=== PATIENT | female | born 1975 | race Caucasian/White ===

== ENCOUNTER 2017-09-26 06:07 | Inpatient (IN) | payer OTHER ==
[2017-09-26] MEDS: CEFAZOLIN 2 GM/50 ML (PMX) 50 ML IVPB ×3 (06:00→22:05)
[2017-09-26] MEDS ORDERED: FENTAnyl 50 MCG/ML VIAL (07:00)
[2017-09-26] MEDS ORDERED: CEFAZOLIN 1 GM INJ (07:34)
[2017-09-26] MEDS ORDERED: PROPOFOL 20 ML (07:34)
[2017-09-26] MEDS ORDERED: ROCURONIUM 50 MG INJ ×2 (07:34→07:37)
[2017-09-26] MEDS ORDERED: ROPIVACAINE 0.5 % 30 ML VIAL (07:35)
[2017-09-26] MEDS ORDERED: MIDAZOLAM 1 MG/ML 2 ML INJ (07:35)
[2017-09-26] MEDS ORDERED: morphine SULFATE/PF (10 MG/10 ML) INJ (07:35)
[2017-09-26] MEDS ORDERED: METOCLOPRAMIDE 10 MG INJ (08:00)
[2017-09-26] MEDS ORDERED: ONDANSETRON 4 MG INJ (08:00)
[2017-09-26] MEDS ORDERED: DEXAMETHASONE 4 MG/ML 1 ML INJ (08:00)
[2017-09-26] MEDS ORDERED: KETOROLAC 30 MG INJ (08:00)
[2017-09-26] MEDS ORDERED: SODIUM CL BACTERIOSTATIC 30 ML INJ (08:30)
[2017-09-26] MEDS: VASOPRESSIN 20 UNITS INJ (08:39)
[2017-09-26] MEDS ORDERED: PHENYLephrine (100 MCG/ML) 5ML SYG (09:29)
[2017-09-26] MEDS ORDERED: ACETAMINOPHEN 1000MG/100ML IV 100 ML (09:53)
[2017-09-26] MEDS ORDERED: SUGAMMADEX SODIUM 200 MG/2 ML VIAL IV (09:53)
[2017-09-26] MEDS ORDERED: hydrALAzine 20 MG INJ IV (10:30)
[2017-09-26] MEDS ORDERED: KETOROLAC 30 MG INJ IV (10:30)
[2017-09-26] MEDS ORDERED: LABETALOL HCL 20MG INJ IV (10:30)
[2017-09-26] MEDS ORDERED: FENTAnyl 50 MCG/ML VIAL IV ×2 (10:30)
[2017-09-26] MEDS ORDERED: HYDROCODONE/APAP (5/325) TAB PO (10:30)
[2017-09-26] MEDS ORDERED: MEPERIDINE 25 MG INJ IV (10:30)
[2017-09-26] MEDS ORDERED: morphine (1 MG/ML) 10ML SYRINGE IV ×2 (10:30)
[2017-09-26] MEDS ORDERED: HYDROmorphONE (0.2 MG/ML) 10ML SYG IV ×2 (10:30)
[2017-09-26] MEDS ORDERED: ACETAMINOPHEN 500 MG TAB PO (10:30)
[2017-09-26] MEDS ORDERED: METOCLOPRAMIDE 10 MG INJ IV (10:30)
[2017-09-26] MEDS ORDERED: NALBUPHINE HCL (10 MG/1 ML) INJ IV (10:30)
[2017-09-26] MEDS ORDERED: OXYCODONE/ACETAMINOPHEN (5/325) TAB PO ×2 (10:30)
[2017-09-26] MEDS ORDERED: NALOXONE (0.4 MG/ML) INJ IV (10:30)
[2017-09-26] MEDS ORDERED: DIPHENHYDRAMINE 50 MG INJ IV ×2 (10:30)
[2017-09-26] MEDS ORDERED: morphine 2 MG INJ IV ×2 (10:30)
[2017-09-26] MEDS ORDERED: EPHEDrine SULFATE 50 MG/5 ML SYG IV (10:30)
[2017-09-26] MEDS ORDERED: HYDROmorphONE 0.5 MG/0.5 ML SYG IV (10:30)
[2017-09-26] MEDS: IBUPROFEN 600 MG TAB PO ×2 (13:00→22:04)
[2017-09-26] MEDS: LACTATED RINGER'S 1,000 ML IV* (14:13)
[2017-09-26] MEDS: ONDANSETRON 4 MG INJ IV ×2 (15:24→22:05)
[2017-09-26] MEDS: HYDROmorphONE 0.5 MG/0.5 ML SYG IV (20:03)
[2017-09-27] MEDS: HYDROmorphONE 0.5 MG/0.5 ML SYG IV (01:44)
[2017-09-27] MEDS: CEFAZOLIN 2 GM/50 ML (PMX) 50 ML IVPB (05:18)
[2017-09-27] MEDS: IBUPROFEN 600 MG TAB PO ×3 (05:19→20:26)
[2017-09-27 05:34] LABS: ADD MAN DIFF? NO
[2017-09-27 05:37] LABS: BASOPHILS % 0.3 % (0.0-2.0); EOSINOPHILS % 0.3 % (0.0-7.0); HEMATOCRIT 25.5 % (37.0-47.0); HEMOGLOBIN 7.8 g/dl (12.0-16.0); LYMPHOCYTES # 1.5 10^3/ul (0.8-2.9); LYMPHOCYTES % 19.5 % (15.0-51.0); MEAN CORPUSCULAR HEMOGLOBIN 24.1 pg (29.0-33.0); MEAN CORPUSCULAR HGB CONC 30.6 g/dl (32.0-37.0); MEAN CORPUSCULAR VOLUME 78.9 fl (82.0-101.0); MEAN PLATELET VOLUME 10.4 fl (7.4-10.4); MONOCYTE # 1.2 10^3/ul (0.3-0.9); MONOCYTES % 15.8 % (0.0-11.0); NEUTROPHIL # 4.9 10^3/ul (1.6-7.5); NEUTROPHILS % 63.8 % (39.0-77.0); PLATELET COUNT 300 10^3/UL (140-415); RED BLOOD COUNT 3.23 10^6/ul (4.20-5.40); RED CELL DISTRIBUTION WIDTH 16.2 % (11.5-14.5)
[2017-09-27 05:37] LABS: WHITE BLOOD COUNT 7.7 10^3/ul (4.8-10.8)
[2017-09-27 05:48] LABS: ANION GAP 14 (8-16); BLOOD UREA NITROGEN 13 mg/dl (7-20); CALCIUM 8.1 mg/dl (8.4-10.2); CARBON DIOXIDE 24 mmol/L (21-31); CHLORIDE 105 mmol/L (97-110); CREATININE 0.75 mg/dl (0.44-1.00); GLUCOSE 106 mg/dl (70-220); POTASSIUM 3.7 mmol/L (3.5-5.1); SODIUM 139 mmol/L (135-144)
[2017-09-27 06:36] LABS: ADD UMIC YES; UR ASCORBIC ACID NEGATIVE (NEGATIVE); UR BACTERIA FEW /HPF (NONE SEEN); UR BILIRUBIN (Dip) NEGATIVE (NEGATIVE); UR BLOOD (Dip) 1+ mg/dL (NEGATIVE); UR CLARITY CLEAR (CLEAR); UR COLOR STRAW (YELLOW); UR GLUCOSE (Dip) NEGATIVE (NEGATIVE); UR KETONES (Dip) NEGATIVE (NEGATIVE); UR LEUKOCYTE ESTERASE (Dip) NEGATIVE Leu/ul (NEGATIVE); UR NITRITE (Dip) NEGATIVE (NEGATIVE); UR RBC 3 /HPF (0-5); UR SPECIFIC GRAVITY (Dip) 1.004 (1.003-1.030); UR TOTAL PROTEIN (Dip) NEGATIVE (NEGATIVE); UR UROBILINOGEN (Dip) NEGATIVE (NEGATIVE); UR WBC 0 /HPF (0-5)
[2017-09-27] MEDS: HYDROCODONE/APAP (5/325) TAB PO ×2 (10:27→17:31)
[2017-09-28] MEDS: HYDROCODONE/APAP (5/325) TAB PO ×3 (02:21→19:50)
[2017-09-28] MEDS: IBUPROFEN 600 MG TAB PO ×3 (05:09→21:34)
[2017-09-28 10:45] LABS: ADD MAN DIFF? NO
[2017-09-28 10:46] LABS: BASOPHILS % 0.4 % (0.0-2.0); EOSINOPHILS # 0.1 10^3/ul (0.0-0.5); EOSINOPHILS % 1.6 % (0.0-7.0); HEMATOCRIT 27.3 % (37.0-47.0); HEMOGLOBIN 8.3 g/dl (12.0-16.0); LYMPHOCYTES # 1.8 10^3/ul (0.8-2.9); LYMPHOCYTES % 22.4 % (15.0-51.0); MEAN CORPUSCULAR HEMOGLOBIN 24.1 pg (29.0-33.0); MEAN CORPUSCULAR HGB CONC 30.4 g/dl (32.0-37.0); MEAN CORPUSCULAR VOLUME 79.1 fl (82.0-101.0); MEAN PLATELET VOLUME 9.9 fl (7.4-10.4); MONOCYTE # 0.7 10^3/ul (0.3-0.9); MONOCYTES % 8.7 % (0.0-11.0); NEUTROPHIL # 5.3 10^3/ul (1.6-7.5); NEUTROPHILS % 66.5 % (39.0-77.0); PLATELET COUNT 309 10^3/UL (140-415); RED BLOOD COUNT 3.45 10^6/ul (4.20-5.40); RED CELL DISTRIBUTION WIDTH 16.4 % (11.5-14.5)
[2017-09-28] MEDS ORDERED: NON-FORMULARY/PATIENT OWN MED (Omeprazole* 40 MG) PO (12:00)
[2017-09-28] MEDS: PANTOPRAZOLE (EC) 40 MG TAB PO (13:04)
[2017-09-28] MEDS: PROPRANOLOL 10 MG TAB PO (13:07)
[2017-09-29] MEDS: IBUPROFEN 600 MG TAB PO ×2 (05:24→12:40)
[2017-09-29] MEDS: PANTOPRAZOLE (EC) 40 MG TAB PO (05:24)
[2017-09-29] MEDS: PROPRANOLOL 10 MG TAB PO (08:22)
[2017-09-29] MEDS ORDERED: BISACODYL 10 MG SUPP PR (10:00)
[2017-09-29] MEDS: HYDROCODONE/APAP (5/325) TAB PO (11:07)
== END 2017-09-29 16:30 | disposition home or self-care (01) | DRG 743 ==
LOC: REC 06:07 → MS1 11:25
PROC: 0UB90ZZ Excision of Uterus, Open Approach (ICD-10-PCS; principal; 2017-09-26 07:30)
PROC: 3E0R3GC Introduction of Other Therapeutic Substance into Spinal Canal, Percutaneous Approach (ICD-10-PCS; 2017-09-26 07:39)
DX: D25.1 Intramural leiomyoma of uterus (principal); I10 Essential (primary) hypertension; N73.6 Female pelvic peritoneal adhesions (postinfective); E78.5 Hyperlipidemia, unspecified; G97.1 Other reaction to spinal and lumbar puncture
CPT/HCPCS: 80048; 81001; 84703; 85025; 86850; 86900; 86901; 86920; 87086; 88305

== ENCOUNTER 2018-01-21 15:26 | Emergency (ER) | payer OTHER ==
[2018-01-21] MEDS: ONDANSETRON (ODT) 4 MG TAB ODT (16:13)
== END 2018-01-21 17:45 | disposition home or self-care (01) ==
LOC: FTE 15:26
DX: H93.13 Tinnitus, bilateral (principal); R11.2 Nausea with vomiting, unspecified; R42 Dizziness and giddiness
CPT/HCPCS: 70450; 99284-25

== ENCOUNTER 2018-05-01 15:31 | Emergency (ER) | payer OTHER ==
[2018-05-01] MEDS: DEXAMETHASONE 10 MG/ML 1 ML INJ IM (16:44)
== END 2018-05-01 18:17 | disposition home or self-care (01) ==
LOC: FTE 18:17
DX: L29.9 Pruritus, unspecified (principal)
CPT/HCPCS: 96372; 99284-25

== ENCOUNTER 2018-05-04 12:48 | Emergency (ER) | payer OTHER ==
[2018-05-04] MEDS: LORAZEPAM 0.5 MG TAB PO (13:11)
== END 2018-05-04 13:25 | disposition home or self-care (01) ==
LOC: FTE 12:48
DX: R25.1 Tremor, unspecified (principal); T38.0X5A Adverse effect of glucocorticoids and synthetic analogues, initial encounter
CPT/HCPCS: 99283; Z7502